=== PATIENT | female | born 1945 | race Caucasian/White ===

== ENCOUNTER 2016-10-19 20:03 | Emergency (ER) | payer MEDICARE, BC ==
[2016-10-19 20:25] VITALS: BP 158/69; PULSE 74; RESP 20; TEMP 98
--- NOTE | 2016-10-19 20:42 | ED ---
General Adult HPI - General Chief complaint: Abdominal Pain Stated complaint: Female /catheter Time Seen by Provider: 10/19/16 20:30 Source: patient, RN notes reviewed Mode of arrival: ambulatory Limitations: no limitations - History of Present Illness Initial comments: Patient is a 70-year-old female status post vaginal prolapse surgery 4 days, who presents emergency room today with chief complaint of problem with her suprapubic catheter. She does admit that today she noticed that her pants were wet and believes that suprapubic catheter may have come out. She states first 2 stitches placed. She states she was unable to see it but her looked at it and thought that was not in place. States called the on-call surgeon advised her to come here to the emergency room for evaluation. She does admit that she has suprapubic placed. She states she is supposed to try to void and then use the suprapubic catheter to remove anything that is remaining. Patient denies any other complaints or symptoms at this time. Patient denies any recent fever, chills, shortness of breath, chest pain, back pain, abdominal pain , nausea or vomiting, numbness or tingling, constipation or diarrhea, headaches or visual changes, or any other complaints. - Related Data Allergies Allergy/AdvReac Type Severity Reaction Status Date / Time acetaminophen [From Percocet] Allergy Rash/Hives Verified 10/19/16 20:26 aspirin [From Percodan] Allergy Rash/Hives Verified 10/19/16 20:26 hydromorphone [From Dilaudid] Allergy Rash/Hives Verified 10/19/16 20:26 morphine Allergy Rash/Hives Verified 10/19/16 20:26 nickel Allergy Rash/Hives Verified 10/19/16 20:26 oxycodone [From Percocet] Allergy Rash/Hives Verified 10/19/16 20:26 Sulfa (Sulfonamide Allergy Rash/Hives Verified 10/19/16 20:26 Antibiotics) tetracycline Allergy Rash/Hives Verified 10/19/16 20:26 Review of Systems ROS Statement: Those systems with pertinent positive or pertinent negative responses have been documented in the HPI. ROS Other: All systems not noted in ROS Statement are negative. Past Medical History Past Medical History: Hyperlipidemia, Hypertension, Thyroid Disorder History of Any Multi-Drug Resistant Organisms: None Reported Past Surgical History: Back Surgery, Hysterectomy, Joint Replacement Additional Past Surgical History / Comment(s): rectocele, shabbir knee, spinal cord stimulator,rt rotator cuff,bunions Past Psychological History: No Psychological Hx Reported Smoking Status: Never smoker Past Alcohol Use History: None Reported Past Drug Use History: None Reported General Exam - General Exam Comments Initial Comments: General: The patient is awake and alert, in no distress, and does not appear acutely ill. Eye: Pupils are equal, round and reactive to light, extra-ocular movements are intact. No nystagmus. There is normal conjunctiva bilaterally. No signs of icterus. Ears, nose, mouth and throat: There are moist mucous membranes and no oral lesions. Neck: The neck is supple, there is no tenderness or JVD. Cardiovascular: There is a regular rate and rhythm. No murmur, rub or gallop is appreciated. Respiratory: Lungs are clear to auscultation, respirations are non-labored, breath sounds are equal. No wheezes, stridor, rales, or rhonchi. Gastrointestinal: Soft, non-distended, non-tender abdomen without masses or organomegaly noted. There is no rebound or guarding present. No CVA tenderness. Bowel sounds are unremarkable. Musculoskeletal: Normal ROM, no tenderness. Strength 5/5. Sensation intact. Pulses equal bilaterally 2+. Neurological: A&O x 3. CN II-XII intact, There are no obvious motor or sensory deficits. Coordination appears grossly intact. Speech is normal. Skin: Skin is warm and dry and no rashes or lesions are noted. Psychiatric: Cooperative, appropriate mood & affect, normal judgment. Limitations: no limitations Course Vital Signs 10/19/16 20:21 Temperature 98.0 F Pulse Rate 74 Respiratory 20 Rate Blood Pressure 158/69 O2 Sat by Pulse 99 Oximetry Medical Decision Making - Medical Decision Making Patient's suprapubic catheter check to the emergency room and did drain 75 mL. Case discussed in detail with attending physician Dr. Bryant. Advised follow-up for surgeon tomorrow. Advised return if there is any change or increase or worsen in any symptoms. Disposition Clinical Impression: Lawler catheter problem Disposition: HOME SELF-CARE Condition: Good Instructions: Lawler Catheter Placement and Care (ED) Additional Instructions: Please follow-up surgeon tomorrow as discussed. Please return to emergency room for any other concerns. Referrals: Laz Romero MD [Primary Care Provider] - 1-2 days Time of Disposition: 21:06
== END 2016-10-19 21:14 | disposition home or self-care (01) ==
LOC: EC 20:03
DX: T83.031A Leakage of indwelling urethral catheter, initial encounter (principal); Z88.1 Allergy status to other antibiotic agents; Z88.2 Allergy status to sulfonamides; Z88.5 Allergy status to narcotic agent; Z88.6 Allergy status to analgesic agent; Z88.8 Allergy status to other drugs, medicaments and biological substances; Z91.048 Other nonmedicinal substance allergy status
CPT/HCPCS: 99283

== ENCOUNTER → 2022-04-18 | Outpatient (CLI) | payer MEDICARE ==
--- NOTE | 2022-04-18 12:35 | CT ---
EXAMINATION TYPE: CT cervical spine wo con DATE OF EXAM: 04/18/2022 COMPARISON: None HISTORY: 76-year-old female C71.9, M48.02, Neck pain TECHNIQUE: Contiguous axial scanning of the cervical spine without IV contrast. Coronal and sagittal reconstructions performed. CT DLP: 303 mGycm Automated exposure control for dose reduction was used. FINDINGS: There is a 1.1 x 0.8 cm partially calcified nodular area along the ventral right side of the dominguez, po ssible vascular malformation. MRI can further evaluate. No craniocervical junction anomaly, predental space widening, or prevertebral soft tissue swelling. There is ankylosis of the right posterior elements at C3-C4 and on the left involving C3-C7. Interbody ankylosis noted at C4-C6 levels. Degenerative grade 1 anterolisthesis C7-T1. Hyperostotic changes of the facet joints. Mild disc osteophyte complex particularly at C4-C5 and C5-C6 mildly impressing on ventral thecal sac but not causing significant spinal canal stenosis. At C4-C5, changes result in mild left neuroforaminal narrowing. Visualized upper lungs show biapical pleural parenchyma scarring and mild emphysematous change. IMPRESSION: 1. Areas of cervical vertebral body ankylosis. The vertebral bodies are fused from C4 to C6 levels an d there is variable fusion of the posterior elements as well from C3 down through C7 levels. 2. Degenerative grade 1 anterolisthesis at C7-T1. 3. Disc osteophyte complexes C4-C5 and C5-C6 contributing to very mild narrowing of the spinal canal. No cecille canal compromise by CT. 4. Scattered hyperostotic changes of the facet joints. This contrast only mild left neuroforaminal na rrowing at C4-C5. 5. Partially calcified nodular area along the ventral right side of the dominguez measuring 1.1 x 0.[address] brain report.
--- NOTE | 2022-04-18 13:03 | CT ---
EXAMINATION TYPE: CT brain wo/w con DATE OF EXAM: 04/18/2022 COMPARISON: None HISTORY: 76-year-old female C71.9, M48.02 Gait disturbance, hearing loss, sinus trouble TECHNIQUE: Examination was done in axial plane before and after IV contrast, 70 mL Isovue-300 is adm inistered. Coronal and sagittal reconstructions performed. CT DLP: 2072.0 mGycm Automated exposure control for dose reduction was used. FINDINGS: There is a partially calcified nodular area along the right ventral dominguez measuring 1.2 x 1.0 cm. On postcontrast images, no direct arterial communication is seen with the adjacent right vertebral ar micheal. Focal hypodensity left yen radiata relating to old white matter infarct. There is no evidence of acute intracranial hemorrhage, acute ischemic changes, other mass, mass-effe ct, or extra-axial fluid collection. There is no effacement of cerebral sulci or basal subarachnoid cisterns. There is no hydrocephalus. There is no midline shift. Martinez-white matter distinction is p reserved. No enhancing intracranial lesions. Dural venous sinuses are patent. Small air-fluid levels in the maxillary sinuses. There appears to have been prior Fess with usual max illary antrectomies. Moderate to severe mucosal thickening throughout the ethmoid air cells. Mastoid air cells well pneumatized. Orbits and globes are intact. IMPRESSION: 1. Calcified nodular area along the right ventral dominguez/CP angle measuring 1.2 x 1.0 cm. Consider cryp tic AVM or other mass such as choroid plexus papilloma, schwannoma, epidermoid, and less likely menin gioma. Glioma also considered less likely. MRI without and with contrast to further evaluate. 2. 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 Mild burden of chronic small vessel ischemic di sease. Otherwise, no enhancing intracranial lesions or acute intracranial abnormality seen. 3. Moderate to severe chronic ethmoid sinus disease. Given small air-fluid levels in the maxillary si nuses, correlate to exclude superimposed acute sinusitis.
== END | disposition home or self-care (01) ==
LOC: RADCTMAIN 09:10
PROVIDERS: ATTEND Psychiatry & Neurology Neurology
DX: C71.9 Malignant neoplasm of brain, unspecified (principal); M48.02 Spinal stenosis, cervical region; M25.78 Osteophyte, vertebrae; M99.71 Connective tissue and disc stenosis of intervertebral foramina of cervical region; J32.2 Chronic ethmoidal sinusitis; I67.82 Cerebral ischemia
CPT/HCPCS: 82565; 84520; 72125; 70470; 36415; Q9967

== ENCOUNTER → 2023-07-23 | Outpatient (CLI) | payer MEDICARE ==
[2023-07-23 12:10] VITALS: BP 135/76; PULSE 64; RESP 16; TEMP 97.1
--- NOTE | 2023-07-23 13:33 | P.PAINPG ---
PQRS Measure Charge Sheet Comment: HISTORY OF PRESENT ILLNESS: A 77 yr old female w daughter/ grandchild at side as a referral from Dr Romero presents today w severe and chronic LBP > 8 yrs secondary to post laminectomy syndrome for evaluation. Pt states pain level is provoked at 9 /10 in intensity, constant, localized in the lower lumbar spine, predominantly axial, achy in character w occasional shooting pain towards the R foot. Pain is provoked by any movement. Pain is alleviated by PT x 12 wks which ended in Apr 2023, massage therapy monthly which ended in 2021, chiropractic treatments semi weekly x 2 mo which ended in Apr 2023, heat, medications (Tyl), Voltaren topical, repositioning and rest. Oswestry axial pain score at 31. PMH: OA, Hyperlipidemia, HTN, Hypothyroid Disorder PSH: Lumbar Surgery, Hysterectomy, BL Knee Replacement, SCS Placement (2014), R RCT Repair, Rectocoele, Bunionectomies SH: Negative x3 FH: Noncontributory All: See list Meds: See list REVIEW OF ORGAN SYSTEMS: CONSTITUTIONAL: No fevers or chills. No recent weight loss. NEUROLOGICAL: + numbness and tingling along the distal extremities. No seizure disorders or headaches. MUSCULOSKELETAL: + pain PSYCHIATRIC: Denies current depression or suicidal thoughts. Physical Examinations : Constitutional : Cooperative , not in acute distress . Neurologic : Cranial nerve II to XII intact. No focal neurological deficits. Psychiatric : alert & oriented x 3. Matching mood & appropriate affect. Judgment & insight intact. Musculoskeletal : Cervical Spine Motor strength in the deltoid and biceps: Normal right side. Normal Left side Motor strength biceps and the wrist extensors: Normal right side . Normal left side Motor strength in the triceps muscle: Normal right side. Normal left side Deep tendon reflexes: Normal at the biceps. Normal at Brachioradialis. Normal at triceps Vertebral body tenderness to deep palpation over Cervical facet loading test: positive bilaterally Spurling test: positive bilaterally Neck distraction test: positive bilate rally James sign: positive bilaterally Lumbar spine Motor strength lower extremities ,thigh and legs 5/5 Right side , 5/5 Left side Deep tendon reflexes : Normal Knee Jerk. Normal Ankle Jerk Vertebral body tenderness over Griffin Test positive Lumbar facet Loading Test: positive Rig ht / positive Left Range of motion of the lumbar spine Flexion 30 degrees, extension 10 degrees Straight Leg Raise test: Left/ Right positive at <30 degrees Alejandro test: positive right / positive left. Severe tenderness over the Sacroiliac joint on the Right / Left sides Gaenslen test: positive bilaterally Seated flexion test: positive bilaterally. Sacral spine : Severe tenderness over the Sacroiliac joint: right side / left side Range of motion: Flexion of the lumbar spine <60 degrees Range of motion: Extension of the lumbar spine <20 degrees Gaenslen's Test positive Alejandro test: positive right side / left side Thigh Thrust Test Sacral Thrust Test Imaging: None on file Assessment/ Plan : Post lumbar laminectomy syndrome Recommendation of obtaining records from Dr Green. All questions answered. I have spent greater than 30 minutes on patient care today. Dr Worthington was available by phone for the evaluation of this patient. The time was used to review the medical records including relevant urine studies and Prescription history (MAPs), review of the available imaging, evaluation and examination of the patient, coordination of care with the medical staff and if applicable referring physicians, as well as creation of the medical record PQRS Narrative: Smoking Status Never smoker Controlled Substance Measures - Controlled Substance Measures Is patient prescribed a controlled substance at discharge?: No
== END ==
LOC: PNWHC3 10:26
PROVIDERS: ATTEND Specialist
DX: M48.07 Spinal stenosis, lumbosacral region (principal); M96.1 Postlaminectomy syndrome, not elsewhere classified; Z88.7 Allergy status to serum and vaccine; Z88.8 Allergy status to other drugs, medicaments and biological substances; Z91.09 Other allergy status, other than to drugs and biological substances; Z88.5 Allergy status to narcotic agent; Z88.2 Allergy status to sulfonamides; Z88.1 Allergy status to other antibiotic agents
CPT/HCPCS: 99211